=== PATIENT | female | born 1990 | race Caucasian/White ===

== ENCOUNTER 2016-10-10 14:35 | Emergency (ER) | payer OTHER ==
[~2016-10-10] VITALS: Ht 157.5 cm; Wt 60.3 kg
[2016-10-10 14:46] VITALS: BP 143/73
--- NOTE | 2016-10-10 14:54 | NUR ---
PATIENT PRESENTS TO ED DUE TO RIGHT LOWER ABD PAIN RADIATING TO BACK WITH N/V ON AND OFF 5 MONTHS. SKIN IS PINK/WARM/DRY; AAOX4 WITH EVEN AND STEADY GAIT; LUNGS CLEAR BL; HR EVEN AND REGULAR; PT DENIES ANY FEVER, CP, SOB, OR COUGH AT THIS TIME; PATIENT STATES PAIN OF 9/10/ABDOMEN AT THIS TIME; PATIENT POSITIONED FOR COMFORT; HOB ELEVATED; BEDRAILS UP X2; BED DOWN. ER MD MADE AWARE OF PT STATUS.
--- NOTE | 2016-10-10 15:10 | NUR ---
RELAYED TO DR. TUCKER RESULT OF URINE DIPSTICK
--- NOTE | 2016-10-10 15:46 | NUR ---
PT IN BED RESTING, NO VOMITTING, PT AAO, SKIN WARM TO TOUCH RESP. EVEN AND UNLABORED.
--- NOTE | 2016-10-10 16:13 | NUR ---
DR. TUCKER AT BEDSIDE
[2016-10-10] MEDS ORDERED: KETOROLAC 30 MG/ML VIAL IVP ONE (16:20)
--- NOTE | 2016-10-10 16:35 | NUR ---
pt went for ct via wheelchair, pt aao.
--- NOTE | 2016-10-10 16:49 | NUR ---
PT BACK FROM CT
[2016-10-10] MEDS ORDERED: MORPHINE SULFATE 4 MG/ML SYR IVP ONE (17:35)
--- NOTE | 2016-10-10 17:35 | NUR ---
INFORMED DR. TUCKER PT IS STILL C/O OF SEVERE ABDOMINAL PAIN, NO VOMITTING NOTED.
[2016-10-10 18:20] VITALS: BP 123/71
--- NOTE | 2016-10-10 18:22 | NUR ---
Patient discharged with v/s stable. Written and verbal after care instructions given and explained. Patient alert, oriented and verbalized understanding of instructions. Ambulatory with steady gait. All questions addressed prior to discharge. ID band removed. Patient advised to follow up with PMD. Rx of NORCO AND MOTRIN given. Patient educated on indication of medication including possible reaction and side effects. Opportunity to ask questions provided and answered.
== END 2016-10-10 18:22 | disposition home or self-care (01) ==
LOC: MED 15:11
DX: R10.31 Right lower quadrant pain (principal); R11.0 Nausea
CPT/HCPCS: 36415; 74176; 80053; 81001; 81025; 83690; 85025; 96374; 96375; 99285; J1885; J2270

== ENCOUNTER 2016-10-16 18:04 | Emergency (ER) | payer OTHER ==
[~2016-10-16] VITALS: Ht 157.5 cm; Wt 60.3 kg
[2016-10-16 18:21] VITALS: BP 129/73
--- NOTE | 2016-10-16 19:46 | NUR ---
PT TAKEN TO BED 2
--- NOTE | 2016-10-16 19:55 | NUR ---
26 Y/O F W/C/O DIZZINESS, HEADACHES AND ABD PAIN SINCE Friday10/11/16. STATES WAS THIS DAY FOR THE SAME COMPLAIN. PER PT CT SCAN, AND URINALYSIS WAS DONE FOR HER. NO S/S OF DISTRESS AT THE MOMENT. ER MD NOTIFIED.
--- NOTE | 2016-10-16 21:10 | NUR ---
Dr. Rice evaluating patient at bedside.
[2016-10-16] MEDS ORDERED: cefTRIAXone 1,000 MG in LIDOCAINE 1% ED 2.1 ML IM ONE (21:15)
[2016-10-16] MEDS ORDERED: KETOROLAC 60 MG/2 ML VIAL IM ONE (21:15)
--- NOTE | 2016-10-16 22:14 | NUR ---
PT TAKEN TO CT
--- NOTE | 2016-10-16 22:23 | NUR ---
PT BACK FROM CT
[2016-10-16] MEDS ORDERED: HYDROcodone/APAP 10/325 MG 1 TAB TAB PO ONE (22:30)
[2016-10-16 22:56] VITALS: BP 127/81
--- NOTE | 2016-10-16 22:56 | NUR ---
Patient discharged BY DR COMBS with v/s stable. Written and verbal after care instructions given and explained BY ER MD. Patient alert, oriented and verbalized understanding of instructions. Ambulatory with steady gait. All questions addressed prior to discharge. ID band removed. Patient advised to follow up with PMD OR RETURN TO ER IF CONDITION GETS WORSE. Rx of AUGMENTIN, NAPROSYN AND ANTIVERT given. Patient educated on indication of medication including possible reaction and side effects. Opportunity to ask questions provided and answered.
== END 2016-10-16 22:56 | disposition home or self-care (01) ==
LOC: MED 18:14
DX: J32.9 Chronic sinusitis, unspecified (principal); H66.93 Otitis media, unspecified, bilateral
CPT/HCPCS: 70450; 81002; 81025; 99284; J0696; J1885; J2001

== ENCOUNTER 2017-08-01 05:10 | Emergency (ER) | payer OTHER ==
[~2017-08-01] VITALS: Ht 157.5 cm; Wt 60.4 kg
[2017-08-01 05:15] VITALS: BP 155/95
[2017-08-01] MEDS ORDERED: FIO PO (05:26)
--- NOTE | 2017-08-01 05:45 | NUR ---
CAME IN FOR REEVALUATION OF HEADACHE AND NECK STIFFNESS. PT WAS SEEN HERE ON 07/29/17 FOR SIMILAR SYMPTOMS, DX: TENSION HEADACHE, RX FIORECET. PT DENIES RELIEF OF SYMPTOMS. SEVERE GENERALIZED HEADACHE REPORTED WITH NECK PAIN AND STIFFNESS AND NAUSEA, DENIES VOMTING. DENIES TRAUMA/INJURY, DENIES VISUAL DISTURBANCES, WEAKNESS, NUMBNESS/TINGLING. DENIES FEVER BUT REPORTS CHILLS. DENIES OTHER PMH, RX/OTC
[2017-08-01] MEDS ORDERED: KETOROLAC 30 MG/ML VIAL IVP ONE (05:50)
[2017-08-01] MEDS ORDERED: PROCHLORPERAZINE 10 MG/2 ML VIAL IVP ONE (05:50)
[2017-08-01] MEDS ORDERED: diphenhydrAMINE 50 MG/ML VIAL IVP ONE (05:50)
[2017-08-01] MEDS ORDERED: SUMAtriptan 6 MG/0.5 ML VIAL SUBQ ONE (06:00)
--- NOTE | 2017-08-01 06:43 | NUR ---
Patient discharged with v/s stable. Written and verbal after care instructions given and explained. Patient alert, oriented and verbalized understanding of instructions. Ambulatory with steady gait. All questions addressed prior to discharge. ID band removed. Patient advised to follow up with PMD. Rx of FLEXERIL AND IMITREX given. Patient educated on indication of medication including possible reaction and side effects. Opportunity to ask questions provided and answered.
[2017-08-01 06:48] VITALS: BP 110/65
== END 2017-08-01 06:43 | disposition home or self-care (01) ==
LOC: MED 05:10
DX: G44.209 Tension-type headache, unspecified, not intractable (principal)
CPT/HCPCS: 81002; 81025; 96372; 96374; 96375; 99284; J0780; J1200; J1885; J3030